=== PATIENT | female | born 1945 | race Two or more races ===

== ENCOUNTER 2022-07-26 07:51 | Inpatient (IN) | payer MEDICARE, OTHER ==
[2022-07-26] VITALS (14 sets, daily range): BP systolic 100–142; BP diastolic 32–56
[~2022-07-26] VITALS: Ht 157.5 cm; Wt 59.6 kg
[2022-07-26] MEDS ORDERED: CHOL50007 PO (11:23)
[2022-07-26] MEDS ORDERED: CYAN1TAB11 PO (11:23)
[2022-07-26] MEDS ORDERED: MULT-195 PO (11:23)
[2022-07-26] MEDS ORDERED: ROSU20TA14 PO (11:23)
[2022-07-26] MEDS ORDERED: ZINC66TA PO (12:25)
[2022-07-26] MEDS ORDERED: [UNRECOGNIZED DRUG - OTHER] PO (12:25)
[2022-07-26] MEDS ORDERED: CHOL20003 PO (12:30)
[2022-07-26] MEDS: SODIUM CHLOR 0.9% PF (SALINE LOCK) 10ML VIAL/SYR IV SCH ×2 (14:00→22:49)
[2022-07-26] MEDS: ACETAMINOPHEN 500 MG TAB PO PRN (22:49)
[2022-07-27 05:10] VITALS: BP 118/50
[2022-07-27 05:24] LABS: Hematocrit 28.1 % (36.0-46.0); Mean Corpuscular Hemoglobin 29.6 pg (28.0-32.0)
[2022-07-27 05:29] LABS: Hemoglobin 9.2 g/dL (12.2-16.2); Mean Corpuscular Hgb Conc. 32.9 g/dL (32.0-36.0); Mean Corpuscular Volume 90.2 fL (80.0-100.0); Red Blood Cells 3.12 10^6/uL (4.0-5.20); Red Cell Distribution Width 18.4 % (11.8-14.3)
[2022-07-27 05:41] LABS: White Blood Cell 1.5 10^3/uL (4.4-10.8)
[2022-07-27 05:43] LABS: Basophils % (manual) 0 (0.0-2.0); Blast Cells 0; Metamyelocytes % 0; Myelocytes % 0; Promyelocytes % 0
[2022-07-27] MEDS: SODIUM CHLOR 0.9% PF (SALINE LOCK) 10ML VIAL/SYR IV SCH ×2 (06:17→13:56)
[2022-07-27 08:00] VITALS: BP 118/70
[2022-07-27 09:00] VITALS: BP 110/45
[2022-07-27 09:41] LABS: Band Neutrophils % (manual) 1; Eosinophils % (manual) 1 (0-7); Lymphocytes % (manual) 58 (10.0-50.0); Monocytes % (manual) 16 (0-12); Reactive Lymphocytes 4
[2022-07-27] MEDS ORDERED: HYDROmorphone HCL 2 MG/ML VL/or syr IV PRN (09:45)
[2022-07-27 13:00] VITALS: BP 124/49
[2022-07-27 17:08] VITALS: BP 135/40
[2022-07-27 22:00] VITALS: BP 138/42
[2022-07-28] MEDS: SODIUM CHLOR 0.9% PF (SALINE LOCK) 10ML VIAL/SYR IV SCH ×3 (00:14→21:21)
[2022-07-28 05:00] VITALS: BP 124/57
[2022-07-28 09:00] VITALS: BP_SYST 112; BP_SYST 158; BP_DIAS 41; BP_DIAS 59
[2022-07-28 13:00] VITALS: BP 137/48
[2022-07-28 17:00] VITALS: BP 122/41
[2022-07-28] MEDS: ACETAMINOPHEN 500 MG TAB PO PRN (21:21)
[2022-07-28 22:00] VITALS: BP 130/74
[2022-07-29 05:00] VITALS: BP 124/59
[2022-07-29] MEDS: SODIUM CHLOR 0.9% PF (SALINE LOCK) 10ML VIAL/SYR IV SCH ×2 (06:10→13:30)
[2022-07-29 09:00] VITALS: BP 131/90
[2022-07-29 09:59] LABS: Mean Corpuscular Hemoglobin 29.5 pg (28.0-32.0); Mean Corpuscular Hgb Conc. 32.3 g/dL (32.0-36.0)
[2022-07-29 10:01] LABS: Hematocrit 29.1 % (36.0-46.0); Hemoglobin 9.4 g/dL (12.2-16.2); Mean Corpuscular Volume 91.1 fL (80.0-100.0)
[2022-07-29 10:10] LABS: White Blood Cell 1.6 10^3/uL (4.4-10.8)
[2022-07-29 10:11] LABS: Band Neutrophils % (manual) 0; Basophils % (manual) 0 (0.0-2.0); Blast Cells 0; Metamyelocytes % 0; Myelocytes % 0; Promyelocytes % 0; Reactive Lymphocytes 0
[2022-07-29] MEDS ORDERED: ONDANSETRON HCL 4 MG/2 ML VIAL IV PRN (12:15)
[2022-07-29 15:00] LABS: Eosinophils % (manual) 2 (0-7); Lymphocytes % (manual) 58 (10.0-50.0); Monocytes % (manual) 10 (0-12)
== END 2022-07-29 15:35 | disposition home or self-care (01) | DRG 810 ==
LOC: CATH 07:51 → OVERFLOW 11:13 → WEST WING 17:57
PROVIDERS: ADMIT Internal Medicine Cardiovascular Disease; ATTEND Internal Medicine Cardiovascular Disease
PROC: 30233N1 Transfusion of Nonautologous Red Blood Cells into Peripheral Vein, Percutaneous Approach (ICD-10-PCS; principal; 2022-07-26)
PROC: 07DR3ZX Extraction of Iliac Bone Marrow, Percutaneous Approach, Diagnostic (ICD-10-PCS; 2022-07-29)
DX: D61.818 Other pancytopenia (principal); D46.9 Myelodysplastic syndrome, unspecified; E78.5 Hyperlipidemia, unspecified; G47.33 Obstructive sleep apnea (adult) (pediatric); Z20.822 Contact with and (suspected) exposure to COVID-19; I10 Essential (primary) hypertension; Z80.1 Family history of malignant neoplasm of trachea, bronchus and lung; Z87.891 Personal history of nicotine dependence; Z90.710 Acquired absence of both cervix and uterus
CPT/HCPCS: 36415; 74177; 82270; 82390; 83010; 83615; 84155; 84165; 85007; 85027; 85045; 86038; 86200; 86850; 86880; 86900; 86901; 86920; G0378; G0463; J2405

== ENCOUNTER → 2022-08-02 | Outpatient (CLI) | payer MEDICARE, OTHER ==
[~2022-08-02] MED LIST: CHOL20003 PO; CYAN1TAB11 PO; MULT-195 PO; ROSU20TA14 PO; [UNRECOGNIZED DRUG - OTHER] PO
[2022-08-02 12:45] LABS: Basophils # (auto) 0 10 ^3/uL (0-0.2); Basophils % (auto) 0.9 % (0.0-2.0); Eosinophils # (auto) 0 10 ^3/uL (0-0.8); Eosinophils % (auto) 1.6 % (0.0-7.0); Hematocrit 33.7 % (36.0-46.0); Hemoglobin 10.5 g/dL (12.2-16.2); Lymphocytes # (auto) 0.8 10 ^3/uL (0.4-5.4); Lymphocytes % (auto) 36.3 % (10.0-50.0); Mean Corpuscular Hemoglobin 28.6 pg (28.0-32.0); Mean Corpuscular Volume 92.2 fL (80.0-100.0); Monocytes # (auto) 0.4 10 ^3/uL (0-1.3); Monocytes % (auto) 16.5 % (0.0-12.0); Neutrophils % (auto) 44.7 % (37.0-80.0); Nucleated Red Blood Cells % 0.2 %; Red Blood Cells 3.65 10^6/uL (4.0-5.20); Red Cell Distribution Width 18.2 % (11.8-14.3); White Blood Cell 2.2 10^3/uL (4.4-10.8)
[2022-08-02 12:52] LABS: % Iron Saturation 7.5 % (15-50)
== END | disposition home or self-care (01) ==
LOC: CHF HDHVI 10:31
PROVIDERS: ATTEND Internal Medicine Cardiovascular Disease
DX: D64.9 Anemia, unspecified (principal)
CPT/HCPCS: 36415; 83540; 83550; 85025; 85045

== ENCOUNTER → 2023-04-14 | Outpatient (CLI) | payer MEDICARE, OTHER ==
[~2023-04-14] VITALS: Ht 154.9 cm; Wt 61.2 kg
== END | disposition home or self-care (01) ==
LOC: Rad HDHVI 08:51
PROVIDERS: ATTEND Internal Medicine Cardiovascular Disease
DX: I11.0 Hypertensive heart disease with heart failure (principal); I50.33 Acute on chronic diastolic (congestive) heart failure; I25.10 Atherosclerotic heart disease of native coronary artery without angina pectoris; E78.5 Hyperlipidemia, unspecified; D64.9 Anemia, unspecified; Z82.49 Family history of ischemic heart disease and other diseases of the circulatory system
CPT/HCPCS: 78452; 93017; 96374; A9500

== ENCOUNTER → 2024-10-14 | Outpatient (CLI) | payer MEDICARE, OTHER | END | disposition home or self-care (01) | LOC: Rad HDHVI 09:04 | PROVIDERS: ATTEND Internal Medicine Cardiovascular Disease | DX: I10 Essential (primary) hypertension (principal); R06.02 Shortness of breath | CPT/HCPCS: 93306 ==

== ENCOUNTER → 2024-10-18 | Outpatient (CLI) | payer MEDICARE, OTHER ==
[~2024-10-18] VITALS: Ht 157.5 cm; Wt 60.8 kg
[~2024-10-18] MED LIST changes: +ADENOSINE 51 MG in GIVE UN-DILUTED 0 ML IV ONE; +ADENOSINE 90 MG/30 ML INJ IV ONE
== END | disposition home or self-care (01) ==
LOC: Rad HDHVI 09:10
PROVIDERS: ATTEND Internal Medicine Cardiovascular Disease
DX: I11.0 Hypertensive heart disease with heart failure (principal); I50.33 Acute on chronic diastolic (congestive) heart failure; I25.10 Atherosclerotic heart disease of native coronary artery without angina pectoris; E78.00 Pure hypercholesterolemia, unspecified
CPT/HCPCS: 78452; 93005; 96374; A9500; J0153; 96375

== ENCOUNTER 2025-06-28 11:53 | Outpatient (CLI) | payer MEDICARE, OTHER ==
[~2025-06-28 11:53] MED LIST changes: -ADENOSINE 51 MG in GIVE UN-DILUTED 0 ML IV ONE; -ADENOSINE 90 MG/30 ML INJ IV ONE
[2025-06-28 11:57] VITALS: BP 108/44; PULSE 89; RESP 16; O2SAT 95
[2025-06-28] MEDS: MULTIPLE VIT 10 ML IV ONE (12:00)
[2025-06-28] MEDS: cefTRIAXone 1GM/50ML D5W 50 ML IV ONE ×2 (12:00→12:10)
[2025-06-28] MEDS: MVI in SODIUM CHLORIDE 0.9% 500 ML IVB ONE (12:39)
[2025-06-28 14:55] VITALS: BP 133/62; PULSE 92; RESP 16; O2SAT 94
== END 2025-06-28 17:00 | disposition home or self-care (01) ==
LOC: CHF HDHVI 11:53
PROVIDERS: ATTEND Internal Medicine Cardiovascular Disease
DX: N39.0 Urinary tract infection, site not specified (principal); E86.0 Dehydration; I11.0 Hypertensive heart disease with heart failure; I50.33 Acute on chronic diastolic (congestive) heart failure; I25.10 Atherosclerotic heart disease of native coronary artery without angina pectoris; E78.00 Pure hypercholesterolemia, unspecified
CPT/HCPCS: 96365; 96366; 96367; G0463; J0696; J3411; J3475; J7040; 96361

== ENCOUNTER 2025-07-05 08:14 | Outpatient (CLI) | payer MEDICARE, OTHER ==
[~2025-07-05] VITALS: Ht 152.4 cm; Wt 59.0 kg
[2025-07-05] MEDS ORDERED: ADENOSINE 50 MG in GIVE UN-DILUTED 0 ML IV ONE (08:45)
[2025-07-05] MEDS ORDERED: ADENOSINE 90 MG/30 ML INJ IV ONE (08:49)
== END 2025-07-05 17:00 | disposition home or self-care (01) ==
LOC: Rad HDHVI 08:14
PROVIDERS: ATTEND Internal Medicine Cardiovascular Disease
DX: Z01.810 Encounter for preprocedural cardiovascular examination (principal); I11.0 Hypertensive heart disease with heart failure; I25.10 Atherosclerotic heart disease of native coronary artery without angina pectoris; I50.33 Acute on chronic diastolic (congestive) heart failure; R06.02 Shortness of breath; E78.00 Pure hypercholesterolemia, unspecified
CPT/HCPCS: 78452; 93017; A9500; J0153

== ENCOUNTER → 2025-07-07 | Outpatient (CLI) | payer MEDICARE, OTHER | END | disposition home or self-care (01) | LOC: Rad HDHVI 07:58 | PROVIDERS: ATTEND Internal Medicine Cardiovascular Disease | DX: I35.1 Nonrheumatic aortic (valve) insufficiency (principal); I74.3 Embolism and thrombosis of arteries of the lower extremities | CPT/HCPCS: 93306 ==